=== PATIENT | female | born 1950 | race Asian ===

== ENCOUNTER 2017-04-09 14:10 | Emergency (ER) | payer OTHER ==
[~2017-04-09] VITALS: Ht 152.4 cm; Wt 61.0 kg
[2017-04-09 14:12] VITALS: Ht 152.4 cm; Wt 61.0 kg
--- NOTE | 2017-04-09 15:08 | RADRPT ---
PROCEDURE: CT Brain without contrast. CLINICAL INDICATION: Pain, headache, left parietal mass TECHNIQUE: Routine CT scan of the brain was performed on a high resolution multi detector scanner without intravenous contrast. One or more of the following dose reduction techniques were used: Auto mated exposure control; Adjustment of the mA and/or kV according to patient size; Use of iterative r econstruction technique. CTDI = 44 mGy. DLP = 720 mGy-cm. COMPARISON: No prior relevant examinations are available for comparison. FINDINGS: Hemorrhage: No evidence of intracranial hemorrhage. Acute ischemic changes: No evidence of acute ischemic changes. Mass effect/Midline shift: None. Parenchymal volume: Within normal limits for age. Ventricular system: Concordant with parenchymal volume. Chronic changes: Parenchymal attenuation is within normal limits. Atherosclerotic calcifications of the cavernous portions of both internal carotid arteries are present. Extracranial soft tissues: Small hematoma of the left parietal scalp. Calvarium: No fractures. Paranasal sinuses: Visualized paranasal sinuses are clear. Mastoid air cells: Visualized mastoid air cells are clear. IMPRESSION: No acute intracranial abnormalities. Normal appearance of the brain parenchyma. Small left parietal scalp hematoma without evidence of underlying fracture. RPTAT: AADD .Bhupendra Davila MD, MD Date Time Electronically viewed and signed by .Bhupendra Davila MD, on 04/09/2017 15:08 .B/
[2017-04-09] MEDS ORDERED: SULF1TAB31 PO (15:16)
--- NOTE | 2017-04-09 15:18 | ERD ---
ER Documentation Chief Complaint Date/Time DATE: 04/09/17 TIME: 15:17 Chief Complaint POSSIBLE ABCES/CYST ON SCALP HPI This 66-year-old female presents with lump on the left side of her scalp noticed yesterday. She noticed it after coloring her hair. She denies any history of trauma or significant pain. She denies any visual changes, fevers, weakness, additional symptoms ROS All systems reviewed and are negative except as per history of present illness. Medications Home Meds Active Scripts Sulfamethoxazole/Trimethoprim* (Bactrim Ds* Tablet) 1 Each Tablet, 1 TAB PO BID for 7 Days, #14 TAB Prov:YA PARTIDA MD 04/09/17 PMhx/Soc History of Surgery: No Anesthesia Reaction: No Hx Neurological Disorder: No Hx Respiratory Disorders: No Hx Cardiac Disorders: No Hx Psychiatric Problems: No Hx Miscellaneous Medical Probl: No Hx Alcohol Use: No Hx Substance Use: No Hx Tobacco Use: No Physical Exam Vitals Vital Signs Date Time Temp Pulse Resp B/P Pulse Ox O2 Delivery O2 Flow Rate FiO2 04/09/17 14:12 97.6 87 20 131/75 99 Physical Exam Const: [] Alert, not ill-appearing per Head: There is approximately 3 cm area of fluctuance and some slight ecchymosis in the left parietal scalp. Unable to palpate the normal bone underneath the hematoma. There is no significant induration or erythema. Eyes: Normal Conjunctiva ENT: Normal External Ears, Nose and Mouth. Neck: Full range of motion..~ No meningismus. Resp: Clear to auscultation bilaterally Cardio: Regular rate and rhythm, no murmurs Abd: Soft, non tender, non distended. Normal bowel sounds Skin: No petechiae or rashes Back: No midline or flank tenderness Ext: No cyanosis, or edema Neur: Awake and alert Psych: Normal Mood and Affect Procedures/MDM Given the uncertain element of bone. A CT brain was performed which shows a scalp hematoma without evidence of fracture or bony abnormalities. Patient presents with a swelling on the left side of the scalp with signs of hematoma on CT scan. May be an early abscess and she will be treated with Bactrim, instructions for 2-3 days wound check. There may be a hematoma as well from occult trauma. There is no signs of any intracranial lesions, bleeding, signs of sepsis. Patient is advised to return sooner for fevers, new worsening symptoms as directed after instructions otherwise recommend recheck in 2-3 days. The patient was stable with no new complaints during the ER course. Clinically, there is no current evidence to suggest meningitis, sepsis, acute abdomen, pneumonia, acute coronary syndrome, pulmonary embolism, or any other emergent condition appearing to require further evaluation or hospitalization. The patient should certainly return for any new or worsening symptoms per the aftercare instructions. They should otherwise follow-up with her primary care doctor for reevaluation this week. Departure Diagnosis: Primary Impression: Hematoma Condition: Stable Patient Instructions: Hematoma Additional Instructions: CT scan shows hematoma in the area of swelling. Recommend recheck in 2-3 days for possible drainage or aspiration. Recheck otherwise sooner for fevers, new symptoms. YA PARTIDA MD Apr 09, 2017 15:18
== END 2017-04-09 15:27 | disposition home or self-care (01) ==
LOC: FTE 14:10
DX: S00.03XA Contusion of scalp, initial encounter (principal); X58.XXXA Exposure to other specified factors, initial encounter; Y92.9 Unspecified place or not applicable
CPT/HCPCS: 70450